=== PATIENT | male | born 1970 | race Caucasian/White ===

== ENCOUNTER 2017-04-30 18:47 | Emergency (ER) | payer OTHER ==
[~2017-04-30] VITALS: Ht 188 cm; Wt 145.1 kg
--- NOTE | ~2017-04-30 | CR173 ---
[facility] A Service of [facility] RADIOLOGY TEXT RESULTS PATIENT: FRANCIE MOREIRA LOCATION: CFTX : 66 UNIT #: [id number] AGE: [address]: BORIS HARE APRN SEX: M ORDER DR: [id number] [facility] [address] [place], [place] [address] [id number] E MR#: [id number] Acc #: [id number] NAME: FRANCIE MOREIRA : 1970 SEX: M STUDY DATE/TIME: 04/30/2017 21:00 UNIT: [place] ROOM: STUDY DESCRIPTION: CR Knee 3 Views Rt Attending Physician: Boris Hare Aprn Ordering Physician: Boris Hare Aprn Primary Care Physician: Generic Doctor Not In System MEDICAL IMAGING REPORT This report is preliminary unless electronic signature is present EXAM Right knee 3 views 04/30/2017 HISTORY Right knee pain status post fall today. FINDINGS 3 views of the right knee demonstrate no fracture. There is degenerative change with mild narrowing of the medial compartment of the knee and there is narrowing of the patellofemoral joint. Small osteophytes border the lateral compartment of the knee and are seen along the posterior aspect of the patella. The bones are normally mineralized. There is no joint effusion. IMPRESSION Degenerative change about the right knee. No acute abnormality. Dictated by... Mukesh Ledesma M.D. THIS IS AN ELECTRONICALLY VERIFIED REPORT Mukesh Ledesma M.D. at 05/01/2017 2:22 PM KRT/lb TD: 05/01/2017 12:32 JOB #: [id number] MEDICAL IMAGING REPORT Page 1 of 1 COPY
--- NOTE | ~2017-04-30 | CR285 ---
[facility] A Service of [facility] RADIOLOGY TEXT RESULTS PATIENT: FRANCIE MOREIRA LOCATION: CFTX : 66 UNIT #: [id number] AGE: [address]: BORIS HARE APRN SEX: M ORDER DR: [id number] [facility] [address] [place], [place] [address] [id number] E MR#: [id number] Acc #: [id number] NAME: FRANCIE MOREIRA : 1970 SEX: M STUDY DATE/TIME: 04/30/2017 20:55 UNIT: [facility] ROOM: STUDY DESCRIPTION: CR Wrist W Navicular Min 3 Lt Attending Physician: Boris Hare Aprn Ordering Physician: Boris Hare Aprn Primary Care Physician: Generic Doctor Not In System MEDICAL IMAGING REPORT This report is preliminary unless electronic signature is present EXAM Left wrist 3 views 04/30/2017 HISTORY Left wrist pain posteriorly status post fall today. FINIDNGS Wrist evaluation in multiple projections shows normal mineralization of the bony structures about the wrist and satisfactory articular relationship of the radius and ulna to the proximal carpal row and of the distal carpal segments to the metacarpal bases. There is no indication of fracture or dislocation, and no soft tissue radiopaque foreign body is present. No congenital defects are apparent. IMPRESSION Normal wrist. Dictated by... Mukesh Ledesma M.D. THIS IS AN ELECTRONICALLY VERIFIED REPORT Mukesh Ledesma M.D. at 05/01/2017 2:21 PM KRT/lb TD: 05/01/2017 12:51 JOB #: [id number] MEDICAL IMAGING REPORT Page 1 of 1 COPY
--- NOTE | ~2017-04-30 | CR151 ---
[facility] A Service of [facility] RADIOLOGY TEXT RESULTS PATIENT: FRANCIE MOREIRA LOCATION: CFTX : 66 UNIT #: [id number] AGE: [address]: BORIS HARE APRN SEX: M ORDER DR: [id number] [id number] [place], [place] [address] [id number] E MR#: [id number] Acc #: [id number] NAME: FRANCIE MOREIRA : 1970 SEX: M STUDY DATE/TIME: 04/30/2017 21:06 UNIT: CFTX ROOM: STUDY DESCRIPTION: CR Hip Min 2 Views Rt Attending Physician: Boris Hare Aprn Ordering Physician: Boris Hare Aprn Primary Care Physician: Generic Doctor Not In System MEDICAL IMAGING REPORT This report is preliminary unless electronic signature is present EXAM Right hip 2 views 04/30/2017 HISTORY Right hip pain status post fall yesterday. FINDINGS 2 views of the right hip demonstrate no fracture. There is osteophytic spurring about the right acetabulum. The bones are normally mineralized. There is no soft tissue abnormality. IMPRESSION Mild degenerative change right hip. No acute abnormality. Dictated by... Mukesh Ledesma M.D. THIS IS AN ELECTRONICALLY VERIFIED REPORT Mukesh Ledesma M.D. at 05/01/2017 2:21 PM KRT/yulia TD: 05/01/2017 12:57 JOB #: [id number] MEDICAL IMAGING REPORT Page 1 of 1 COPY
== END 2017-04-30 22:26 | disposition home or self-care (01) ==
LOC: CED 18:47 → CFTX 18:47
DX: S63.502A Unspecified sprain of left wrist, initial encounter (principal); S70.01XA Contusion of right hip, initial encounter; S80.02XA Contusion of left knee, initial encounter; S80.01XA Contusion of right knee, initial encounter; E11.9 Type 2 diabetes mellitus without complications; I48.91 Unspecified atrial fibrillation; I10 Essential (primary) hypertension; Z23 Encounter for immunization; W18.09XA Striking against other object with subsequent fall, initial encounter; Y92.009 Unspecified place in unspecified non-institutional (private) residence as the place of occurrence of the external cause
CPT/HCPCS: 29125; 73110; 73502; 73562; 90471; 90715; 99283